=== PATIENT | male | born 1995 | race Caucasian/White ===

== ENCOUNTER 2018-08-20 05:46 | Day surgery (SDC) | payer OTHER ==
--- NOTE | 2018-08-20 07:11 | HP ---
Admitting History and Physical - Admission History Source: Patient, Friend Limitations to Obtaining History: No Limitations - Smoking History Smoking history: Never smoked Have you smoked in the past 12 months: No - Alcohol/Substance Use Hx Alcohol Use: No Home Medications - Allergies Allergies/Adverse Reactions: Allergies Allergy/AdvReac Type Severity Reaction Status Date / Time No Known Drug Allergies Allergy Verified 08/15/18 12:29 egg AdvReac Mild LETHARGY Verified 08/15/18 12:30 - Home Medications Home Medications: Ambulatory Orders Atorvastatin Ca [Lipitor] 20 mg PO HS 08/15/18 Cholecalciferol (Vitamin D3) [Vitamin D] 2,000 unit PO DAILY 08/15/18 Clozapine 300 mg PO HS 08/15/18 Divalproex [Depakote -] 1,000 mg PO HS 08/15/18 Docusate Sodium 100 mg PO BID 08/15/18 Multivitamin/Iron/Folic Acid [Centrum Adults Tablet] 1 each PO DAILY 08/15/18 [place]-3 Fatty Acids [[place]-3] 1,000 mg PO DAILY 08/15/18 Venlafaxine HCl [Effexor -] 225 mg PO DAILY 08/15/18 Review of Systems - Review of Systems Constitutional: reports: No Symptoms Eyes: reports: No Symptoms HENT: reports: No Symptoms Neck: reports: No Symptoms Cardiovascular: reports: No Symptoms Respiratory: reports: No Symptoms Gastrointestinal: reports: No Symptoms Genitourinary: reports: No Symptoms Breasts: reports: No Symptoms Reported Musculoskeletal: reports: No Symptoms Integumentary: reports: No Symptoms Neurological: reports: No Symptoms Endocrine: reports: No Symptoms Physical Examination Constitutional: Yes: Well Nourished Eyes: Yes: WNL HENT: Yes: WNL Imaging - Results EKG: Image Reviewed Assessment/Plan Patient is a 22 year old male with a past medical history of several years of mental illness with multiple hospital admissions for depression, auditory hallucinations and suicidal ideation. His other medical history includes hyperlipidemia, obesity, low vitamin d and chronic constipation. He has received ECT treatments in the past, last one reported to be over 1.5 years prior. Labs reviewed, EKG reviewed. Patient reports that ECT treatments have helped in the past. He denies any nausea, vomiting, chest pain, abdominal pain. States he feels well and wants to try ECTs as they have helped his depression. He is medically cleared for ECT.
[2018-08-20] MEDS ORDERED: ONDANSETRON 4 MG/2 ML VIAL IVPUSH PRN (07:27)
[2018-08-20] MEDS ORDERED: LACTATED RINGERS SOLUTION 1,000 ML IV SCH (07:30)
[2018-08-20] MEDS ORDERED: KETAMINE HCL 500 MG/10 ML VIAL ONE (07:33)
== END 2018-08-20 09:15 | disposition home or self-care (01) ==
LOC: FECT 05:46
PROVIDERS: ATTEND Psychiatry & Neurology Psychiatry
PROC: GZB4ZZZ Other Electroconvulsive Therapy (ICD-10-PCS; principal; 2018-08-20 07:45)
DX: F25.1 Schizoaffective disorder, depressive type (principal)
CPT/HCPCS: 90870; 94760

== ENCOUNTER 2018-08-22 05:41 | Day surgery (SDC) | payer OTHER ==
[2018-08-18 10:47] VITALS: BMI 33.5
[2018-08-22 06:58] VITALS: TEMP 98.2
[2018-08-22] MEDS ORDERED: KETAMINE HCL 500 MG/10 ML VIAL ONE (07:18)
[2018-08-22 08:35] VITALS: BP 132/73; PULSE 96
[2018-08-22] MEDS ORDERED: ONDANSETRON 4 MG/2 ML VIAL IVPUSH PRN (09:07)
[2018-08-22] MEDS ORDERED: PROMETHAZINE HCL 25 MG/1 ML VIAL IVPUSH PRN (09:07)
[2018-08-22] MEDS ORDERED: ACETAMINOPHEN 500 MG TABLET (FP) PO PRN (09:07)
[2018-08-22] MEDS ORDERED: LACTATED RINGERS SOLUTION 1,000 ML IV SCH (09:15)
== END 2018-08-22 09:00 ==
LOC: FECT 05:41
PROVIDERS: ATTEND Psychiatry & Neurology Psychiatry
PROC: GZB4ZZZ Other Electroconvulsive Therapy (ICD-10-PCS; principal; 2018-08-22 07:30)
DX: F25.1 Schizoaffective disorder, depressive type (principal)
CPT/HCPCS: 90870; 94760

== ENCOUNTER 2018-08-27 05:39 | Day surgery (SDC) | payer OTHER ==
[2018-08-21 13:44] VITALS: BMI 33.5
[2018-08-27] MEDS ORDERED: ACETAMINOPHEN 325 MG TABLET (FP) PO PRN (07:35)
[2018-08-27] MEDS ORDERED: ONDANSETRON 4 MG/2 ML VIAL IVPUSH PRN (07:35)
[2018-08-27] MEDS ORDERED: LACTATED RINGERS SOLUTION 1,000 ML IV SCH (07:45)
[2018-08-27] MEDS ORDERED: KETAMINE HCL 500 MG/10 ML VIAL ONE (08:09)
[2018-08-27] MEDS ORDERED: KETOROLAC TROMETHAMINE 30 MG/1 ML VIAL ONE (08:09)
[2018-08-27 09:16] VITALS: TEMP 97.7
[2018-08-27 09:49] VITALS: BP 130/75; PULSE 86
== END 2018-08-27 09:30 ==
LOC: FECT 05:39
PROVIDERS: ATTEND Psychiatry & Neurology Psychiatry
PROC: GZB4ZZZ Other Electroconvulsive Therapy (ICD-10-PCS; principal; 2018-08-27 07:15)
DX: F25.1 Schizoaffective disorder, depressive type (principal)
CPT/HCPCS: 90870; 94760

== ENCOUNTER 2018-08-29 05:40 | Day surgery (SDC) | payer OTHER ==
[2018-08-21 13:49] VITALS: BMI 33.5
[2018-08-29] MEDS ORDERED: KETAMINE HCL 500 MG/10 ML VIAL ONE (07:41)
[2018-08-29 08:52] VITALS: TEMP 97.6
[2018-08-29 09:15] VITALS: BP 129/68; PULSE 72
== END 2018-08-29 09:10 ==
LOC: FECT 05:40
PROVIDERS: ATTEND Psychiatry & Neurology Psychiatry
PROC: GZB4ZZZ Other Electroconvulsive Therapy (ICD-10-PCS; principal; 2018-08-29 07:15)
DX: F25.1 Schizoaffective disorder, depressive type (principal)
CPT/HCPCS: 90870; 94760

== ENCOUNTER 2018-09-01 05:43 | Day surgery (SDC) | payer OTHER ==
[2018-08-22 10:45] VITALS: BMI 33.5
[2018-09-01 06:42] VITALS: TEMP 98
[2018-09-01] MEDS ORDERED: KETAMINE HCL 500 MG/10 ML VIAL ONE (07:14)
[2018-09-01 08:53] VITALS: BP 129/78; PULSE 63
== END 2018-09-01 09:15 ==
LOC: FECT 05:43
PROVIDERS: ATTEND Psychiatry & Neurology Psychiatry
PROC: GZB4ZZZ Other Electroconvulsive Therapy (ICD-10-PCS; principal; 2018-09-01 07:30)
DX: F25.1 Schizoaffective disorder, depressive type (principal)
CPT/HCPCS: 90870; 94760

== ENCOUNTER 2018-09-03 05:39 | Day surgery (SDC) | payer OTHER ==
[2018-08-25 14:29] VITALS: BMI 33.5
[2018-09-03 07:25] VITALS: TEMP 98.1
[2018-09-03] MEDS ORDERED: KETAMINE HCL 500 MG/10 ML VIAL ONE (07:52)
[2018-09-03] MEDS ORDERED: ACETAMINOPHEN 325 MG TABLET (FP) PO PRN (07:58)
[2018-09-03] MEDS ORDERED: ONDANSETRON 4 MG/2 ML VIAL IVPUSH PRN (07:58)
[2018-09-03] MEDS ORDERED: PROMETHAZINE HCL 25 MG/1 ML VIAL IVPUSH PRN (07:58)
[2018-09-03] MEDS ORDERED: LACTATED RINGERS SOLUTION 1,000 ML IV SCH (08:00)
[2018-09-03 09:28] VITALS: BP 121/77; PULSE 86
== END 2018-09-03 10:00 ==
LOC: FECT 05:39
PROVIDERS: ATTEND Psychiatry & Neurology Psychiatry
PROC: GZB4ZZZ Other Electroconvulsive Therapy (ICD-10-PCS; principal; 2018-09-03 07:00)
DX: F25.1 Schizoaffective disorder, depressive type (principal)
CPT/HCPCS: 90870; 94760

== ENCOUNTER 2018-09-05 05:41 | Day surgery (SDC) | payer OTHER ==
[2018-09-05 06:47] VITALS: BMI 33.5
[2018-09-05] MEDS ORDERED: KETAMINE HCL 500 MG/10 ML VIAL ONE (07:13)
[2018-09-05] MEDS ORDERED: ONDANSETRON 4 MG/2 ML VIAL IVPUSH PRN (07:55)
[2018-09-05] MEDS ORDERED: ACETAMINOPHEN 325 MG TABLET (FP) PO PRN (07:55)
[2018-09-05] MEDS ORDERED: PROMETHAZINE HCL 25 MG/1 ML VIAL IVPUSH PRN (07:55)
[2018-09-05] MEDS ORDERED: LACTATED RINGERS SOLUTION 1,000 ML IV SCH (08:00)
[2018-09-05 09:37] VITALS: TEMP 97.8
[2018-09-05 09:40] VITALS: BP 137/77; PULSE 92
== END 2018-09-05 08:50 ==
LOC: FECT 05:41
PROVIDERS: ATTEND Psychiatry & Neurology Psychiatry
PROC: GZB4ZZZ Other Electroconvulsive Therapy (ICD-10-PCS; principal; 2018-09-05 07:15)
DX: F25.1 Schizoaffective disorder, depressive type (principal)

== ENCOUNTER 2018-09-08 05:40 | Day surgery (SDC) | payer OTHER ==
[2018-08-28 16:44] VITALS: BMI 33.5
[2018-09-08] MEDS ORDERED: KETAMINE HCL 500 MG/10 ML VIAL ONE (07:17)
[2018-09-08 08:26] VITALS: TEMP 98.4
[2018-09-08 08:54] VITALS: PULSE 88
[2018-09-08 08:55] VITALS: BP 144/68
[2018-09-08] MEDS ORDERED: ONDANSETRON 4 MG/2 ML VIAL IVPUSH PRN (12:27)
[2018-09-08] MEDS ORDERED: LACTATED RINGERS SOLUTION 1,000 ML IV SCH (12:30)
== END 2018-09-08 08:56 | disposition home or self-care (01) ==
LOC: FECT 05:40
PROVIDERS: ATTEND Psychiatry & Neurology Psychiatry
PROC: GZB4ZZZ Other Electroconvulsive Therapy (ICD-10-PCS; principal; 2018-09-08 07:00)
DX: F25.1 Schizoaffective disorder, depressive type (principal)
CPT/HCPCS: 90870; 94760

== ENCOUNTER 2018-09-10 05:39 | Day surgery (SDC) | payer OTHER ==
[2018-08-28 17:19] VITALS: BMI 33.5
[2018-09-10] MEDS ORDERED: KETAMINE HCL 500 MG/10 ML VIAL ONE (07:36)
[2018-09-10 08:44] VITALS: TEMP 98
[2018-09-10] MEDS ORDERED: ONDANSETRON 4 MG/2 ML VIAL IVPUSH PRN (08:58)
[2018-09-10] MEDS ORDERED: LACTATED RINGERS SOLUTION 1,000 ML IV SCH (09:00)
[2018-09-10 09:06] VITALS: BP 120/65; PULSE 83
== END 2018-09-10 09:10 ==
LOC: FECT 05:39
PROVIDERS: ATTEND Psychiatry & Neurology Psychiatry
PROC: GZB4ZZZ Other Electroconvulsive Therapy (ICD-10-PCS; principal; 2018-09-10 07:00)
DX: F25.1 Schizoaffective disorder, depressive type (principal)
CPT/HCPCS: 90870; 94760